=== PATIENT | female | born 1980 | race Caucasian/White ===

== ENCOUNTER 2018-04-28 05:29 | Observation (INO) | payer OTHER ==
[2018-04-27 09:30] LABS: BASOPHILS % 0.3 % (0.0-1.0); EOSINOPHILS # (AUTO) 0.1 (0.0-0.4); EOSINOPHILS % 1.5 % (0.0-6.0); HEMATOCRIT 35.1 % (34.2-44.1); HEMOGLOBIN 11.8 g/dL (12.0-16.0); LYMPHOCYTES # (AUTO) 2.1 (1.0-3.2); LYMPHOCYTES % 30.8 % (18.0-39.1); MEAN CORPUSCULAR HEMOGLOBIN 32.1 pg (28-32); MEAN CORPUSCULAR HGB CONC 33.6 g/dL (31-35); MEAN CORPUSCULAR VOLUME 95.4 fL (81-99); MONOCYTES # (AUTO) 0.6 (0.2-0.8); MONOCYTES % 9.3 % (4.4-11.3); NEUTROPHILS # (AUTO) 3.9 (2.1-6.9); NEUTROPHILS % 57.8 % (38.7-80.0); PLATELET COUNT 257 x10e3/uL (140-360); RED BLOOD COUNT 3.68 x10e6/uL (3.6-5.1); RED CELL DISTRIBUTION WIDTH 13.2 % (11.7-14.4)
[2018-04-27 11:02] LABS: HIV 1&2 AB SCREEN NON-REACTIVE (NONREACTIVE)
[~2018-04-28] VITALS: Ht 154.9 cm; Wt 56.2 kg
[~2018-04-28 05:29] MED LIST: ARICEPT5 MG PO; ASPIRIN81 MG; CITALOPRAM HBR20 MG PO; DOXYCYCLINE HY100 MG PO; FLUOXETINE HCL20 M1; FLUOXETINE HCL20 MG PO; HYZAAR 100-251 EACH; IRON; IRON325 M1; NITROGLYCERIN0.4 MG SL; NORCO 10-325 T1 EACH; PRAVASTATIN SOD10 MG; ROBAXIN500 MG; TRAZODONE HCL50 MG PO; ZETIA10 MG PO
[2018-04-28] MEDS ORDERED: CEFOXITIN SOD 1 GM VIAL ONE (06:14)
[2018-04-28 06:48] LABS: BILIRUBIN,URINE NEGATIVE (NEGATIVE); CLARITY,URINE CLOUDY (CLEAR); COLOR,URINE YELLOW (YELLOW); KETONES,URINE NEGATIVE (NEGATIVE); LEUKOCYTE ESTERASE ,URINE TRACE (NEGATIVE); NITRITE,URINE NEGATIVE (NEGATIVE); PROTEIN,URINE DIPSTICK TRACE (NEGATIVE); URINE UROBILINOGEN 0.2 mg/dL (0.2 - 1)
[2018-04-28] MEDS ORDERED: BUPIVACAINE LIPOSOME/PF 266 MG/20 ML IJ ONE (10:11)
[2018-04-28] MEDS ORDERED: FENTANYL CITRATE/PF 100MCG/2 ML INJ ONE ×2 (10:59→14:43)
[2018-04-28] MEDS ORDERED: DEXTROSE 5%/LACTATED RINGERS 1,000 ML IV ONE (11:11)
[2018-04-28] MEDS ORDERED: SIMETHICONE 80 MG CHEW PO PRN (11:15)
[2018-04-28] MEDS ORDERED: ONDANSETRON HCL INJ 2 MG/ML VIAL IV PRN (11:15)
[2018-04-28] MEDS ORDERED: HYDROMORPHONE 0.2MG/ML-SOD CHL 30ML PCA SYRINGE IV PRN (11:15)
[2018-04-28] MEDS ORDERED: DIPHENHYDRAMINE HCL 25 MG CAP PO PRN (11:15)
[2018-04-28] MEDS ORDERED: KETOROLAC TROMETHAMINE 30 MG/ML VIAL IM PRN (11:15)
[2018-04-28] MEDS ORDERED: NALOXONE HCL INJ 0.4 MG/ML AMP IV PRN (11:15)
--- NOTE | 2018-04-28 12:18 | Diagnostic Imaging Report ---
PROCEDURE: Frontal and lateral views of the chest. COMPARISON: None. INDICATIONS: pre op ovarian surgery FINDINGS: Lines/tubes: None. Lungs: The lungs are well inflated and clear. There is no evidence of pneumonia or pulmonary edema. Pleura: There is no pleural effusion or pneumothorax. Heart and mediastinum: The heart and the mediastinum are normal. Bones: No acute bony abnormality. IMPRESSION: No acute cardiopulmonary disease. Dictated by: SUDHIR CHIN M.D. on 04/27/2018 at 9:30 Electronically approved by: SUDHIR CHIN M.D. on 04/27/2018 at 9:30
--- NOTE | 2018-04-28 12:22 | Operative Report ---
DATE OF PROCEDURE: April 28, 2018 PREOPERATIVE DIAGNOSES 1. A 37-year-old white female, 0, with heavy, painful periods leading to anemia. 2. Severe lower abdominal and right-sided pelvic pain. 3. Large multiple fibroids of uterus. 4. Large right adnexal complex mass, possible endometrioma, around 8 cm size. POSTOPERATIVE DIAGNOSES 1. A 37-year-old white female, 0, with heavy, painful periods leading to anemia. 2. Severe lower abdominal and right-sided pelvic pain. 3. Large fibroids of uterus. 4. Right ovarian endometrioma. OPERATIVE PROCEDURES 1. Examination under anesthesia. 2. Exploratory laparotomy. 3. Multiple myomectomies. 4. Adhesiolysis. 5. Excision of right ovarian endometrioma and right salpingo-oophorectomy. [employer] J[employer] ASSEMBLER: Dr. Portillo ANESTHESIA: General. FINDINGS AT THE TIME OF SURGERY: On EUA, the cervix looked normal. The uterus was enlarged all the way up to the umbilicus, irregular and firm. Possible multiple large fibroids of uterus. On exploratory laparotomy, the uterus was enlarged, very irregular. Several fibroids coming from the uterus. One in the lower segment of the uterus is small. The 2nd one in the anterior abdominal wall is about 5 cm size. A 3rd one arising from the fundus is very wide and about 10 x 8 cm size, irregular. Number 4 from the posterior wall of the uterus is very wide, about 10 x 12 cm size, arising from the posterior wall of the uterus. The left ovary looked normal. The right ovary was enlarged and replaced completely by the cyst. There was no normal ovarian tissue found. It was stuck to the pelvic sidewall and to the bowel, and the tube was stretched over it and stuck to the bowel. Did multiple myomectomies. Removed 3 fibroid tumors, 1 from the anterior uterine wall, 1 from the fundus and 1 from the posterior wall of the uterus. The right ovary was stuck and replaced completely by the endometrioma. I tried to do excision of the cyst; but because of the adhesions, I could not. I had to remove the complete endometrioma and right salpingo-oophorectomy, after the adhesions from the pelvic sidewall and the bowel. Estimated blood loss was around 200 mL. Urine was clear in the Adair bag. Placed Interceed over the uterine incision to prevent adhesions. Hemostasis was satisfactory. No blood transfusions. PROCEDURE IN DETAIL: The patient was brought to the operating room, put in the supine position, and general anesthesia was given without any problems. Then she was examined under anesthesia. The findings were as dictated above. Then she was prepped and draped in a routine fashion, and we proceeded with the surgery. The Adair catheter in the bladder was draining clear urine. We made a subumbilical vertical incision of the skin, taken down to the fascia. The fascia was opened in a vertical fashion. The rectus muscles were longitudinally. We identified the parietal peritoneum and entered the abdominal cavity without any problems. Then we explored the pelvis. There were several large fibroid tumors arising from the uterus, like I described in my findings. One was small and in the stomach area. One was arising from the anterior wall of the uterus. Two big ones were arising, one from the fundus and one from the posterior wall of the uterus, and distorting the anatomy completely. Both the fundal and the posterior wall ones were away from the tubal opening entries. The left ovary was normal. The right ovary cystic mass looked benign but stuck to the pelvic sidewall and to the bowel in the back. Could not deliver outside. The tube was stretched over it, and the fimbrial end was stuck in the back to the bowel and to the ovarian mass. Therefore, we first the started with the myomectomy. First, we injected the Pitressin 1:13 dilution into the fibroid. Then we made an incision anteriorly over the fibroid tumor and dissected and shelled out the tumor, and the pedicle was closed with 2-0 Vicryl stitches. Then the fundal fibroid was away from the tubal openings. After making sure it was not anywhere close, we injected the diluted Pitressin into the top and anterior parts of the fibroid tumor transversely and made an incision transversely and shelled out the tumor. We excised the excess tissue. We then placed figure-of-8 stitches for hemostasis in the base to approximate the frontal and back liu of the uterus and then closed in the incision with continuous stitches using #1 Vicryl. The hemostasis was satisfactory after putting the pressure over the front incisions. The uterus was delivered outside. The posterior fibroid was injected with Pitressin into the front area. I made a transverse incision over the fibroid tumor and dissected and shelled out the tumor while holding with a clamp and removed the tumor. It was about 10 cm size. The uterine serosa over the tumor was excised. I then tied figure-of-8 stitches in the base to approximate the frontal and back liu. After approximating, the serosa was closed with continuous stitches using #1 Vicryl. Suture was tied snug and cut short. The hemostasis was satisfactory. We then placed an O'Aprezy-B-Bdmunwhp retractor in the incision for further exposure. Covered the uterus with a wet lap and packed all the bowels up with wet laps. We tried to deliver the right ovarian mass, but it was stuck in the back and could not deliver. Tried to do a cystectomy. Started dissecting, but it was an endometrioma, and it was stuck to the pelvic sidewall and to the bowel. Therefore, it was difficult and could not shell it out. The tube was stretched over it. The fimbrial end was all damaged and stuck to the ovarian mass and to the bowel. We gently the adhesions from the pelvic sidewall and to the bowel from the mass. We tried to save the ovary but could not because it was completely replaced by the endometrioma and could not even find the normal tissue. Therefore, I isolated the infundibulopelvic ligament, clamped with Gerry clamps, cut and suture ligated using 1-0 Vicryl close to the mass. The ureter was far away. Then the base of the endometrioma at the broad ligament was clamped with 3 Gerry clamps and cut towards the mass. The stumps were suture ligated using 2-0 Vicryl stitches. Finally, the adhesions from the bowel and clamped the rest of the broad ligament part with Gerry clamp, cut towards the endometrioma, and removed the endometrioma along with the ovary and the tube and sent for pathology. The stump was suture ligated using 2-0 Vicryl with continuous stitches, with the hemostasis satisfactory, the ureter far away, the urine clear, and the bowel looked fine. We then irrigated the pelvis. Hemostasis was satisfactory. Covered the uterine incisions with Interceed to prevent adhesions. Removed the O'Gtozgh-Y-Nklszgji retractor and closed the abdominal wall in layers. Parietal peritoneum was closed with 2-0 Vicryl continuous stitches. We then injected the Exparel local anesthesia for pain relief to the abdominal wall fascia and the muscle. Then the fascia was approximated with #1 Vicryl using 2 sutures starting at the corners and ending in the midline. The subcutaneous tissue was approximated with 3-0 Vicryl with continuous stitches. The skin was approximated with 4-0 Vicryl subcuticular stitches. The patient tolerated the procedure well. There were no complications, but it was a difficult case. Estimated blood loss was around 200 mL. Urine was clear. The patient was moved to the recovery room in stable condition. Job#: [id number]
[2018-04-28 12:23] VITALS: BP 92/50
[2018-04-28 12:46] VITALS: BP 92/50
[2018-04-28 12:48] VITALS: BP 92/50
[2018-04-28] MEDS ORDERED: MIDAZOLAM HCL 2 MG/2 ML VIAL ONE (14:43)
[2018-04-28 16:03] VITALS: BP 98/58
[2018-04-28] MEDS: CEFOXITIN SOD 1 GM VIAL IV SCH (17:10)
[2018-04-28] MEDS ORDERED: CEFOXITIN SOD 1 GM in WATER STERILE 10ML VIAL 10 ML IV SCH (18:00)
[2018-04-28] MEDS ORDERED: DESFLURANE 240 ML BTL INH ONE (18:01)
[2018-04-28] MEDS ORDERED: PROPOFOL IV EMULSION 10 MG/ML 20 ML VIAL ONE (18:01)
[2018-04-28] MEDS ORDERED: DEXAMETHASONE SOD PHOS INJ 4 MG/ML VIAL ONE (18:01)
[2018-04-28] MEDS ORDERED: ACETAMINOPHEN 1000 MG/100 ML IV ONE (18:01)
[2018-04-28] MEDS ORDERED: LIDOCAINE HCL 2% LOCAL INJ 5 ML SDV VIAL INJ ONE (18:01)
[2018-04-28] MEDS ORDERED: ROCURONIUM BROMIDE 10 MG/ML 5ML VIAL ONE (18:01)
[2018-04-28] MEDS ORDERED: ONDANSETRON HCL INJ 2 MG/ML VIAL ONE (18:01)
[2018-04-28] MEDS: DEXTROSE 5%/LACTATED RINGERS 1,000 ML IV SCH ×2 (18:13→20:45)
[2018-04-28 21:00] VITALS: BP 96/54
[2018-04-29] VITALS (8 sets, daily range): BP systolic 83–108; BP diastolic 48–59
[2018-04-29] MEDS: CEFOXITIN SOD 1 GM VIAL IV SCH ×3 (01:00→12:15)
[2018-04-29] MEDS: DEXTROSE 5%/LACTATED RINGERS 1,000 ML IV SCH (01:46)
[2018-04-29 05:19] LABS: BASOPHILS % 0.2 % (0.0-1.0); EOSINOPHILS % 0.1 % (0.0-6.0); HEMOGLOBIN 9.2 g/dL (12.0-16.0); LYMPHOCYTES % 18.3 % (18.0-39.1); MEAN CORPUSCULAR HEMOGLOBIN 32.1 pg (28-32); MEAN CORPUSCULAR HGB CONC 34.1 g/dL (31-35); MEAN CORPUSCULAR VOLUME 94.1 fL (81-99); MONOCYTES # (AUTO) 1.1 (0.2-0.8); MONOCYTES % 10.1 % (4.4-11.3); NEUTROPHILS # (AUTO) 7.8 (2.1-6.9); NEUTROPHILS % 70.9 % (38.7-80.0); PLATELET COUNT 211 x10e3/uL (140-360); RED BLOOD COUNT 2.87 x10e6/uL (3.6-5.1); RED CELL DISTRIBUTION WIDTH 13.1 % (11.7-14.4)
[2018-04-29 05:34] LABS: ANION GAP 11.6 mmol/L (8-16); BLOOD UREA NITROGEN < 5 mg/dL (7-26); CALCIUM 8.3 mg/dL (8.4-10.2); CARBON DIOXIDE 26 mmol/L (22-29); CHLORIDE 106 mmol/L (98-107); CREATININE, SERUM 0.62 mg/dL (0.57-1.11); EST GLOMERULAR FILTRATION RATE > 60 ML/MIN (60-); GLUCOSE 105 mg/dL (74-118); POTASSIUM 3.6 mmol/L (3.5-5.1); SODIUM 140 mmol/L (136-145)
[2018-04-29 05:35] LABS: BUN/CREATININE RATIO 8 (6-25)
[2018-04-29] MEDS ORDERED: FLUOXETINE HCL 20 MG CAP PO SCH (09:00)
[2018-04-29] MEDS ORDERED: TRAZODONE HCL 50 MG TAB PO SCH ×2 (09:00→21:00)
[2018-04-29] MEDS ORDERED: HEMOCYTE PLUS1 EACH (16:21)
[2018-04-29] MEDS ORDERED: COLACE100 MG PO (16:21)
[2018-04-29] MEDS ORDERED: ULTRAM 50MG50 MG PO (16:22)
== END 2018-04-29 16:47 | disposition home or self-care (01) ==
LOC: OR 05:29 → EDBD 07:30 → PACU V 11:08 → IMCU 12:01
PROVIDERS: ADMIT Specialist; ATTEND Specialist
DX: D25.9 Leiomyoma of uterus, unspecified (principal); N80.1 Endometriosis of ovary; D64.9 Anemia, unspecified; F41.9 Anxiety disorder, unspecified; Z88.5 Allergy status to narcotic agent; Z01.812 Encounter for preprocedural laboratory examination; Z01.811 Encounter for preprocedural respiratory examination
CPT/HCPCS: 36415 ×2; 58140; 58720; 71046; 80048; 81003; 84702; 85025 ×2; 86850; 86900; 87390; 88305; 88307; 93005; C9290; G0378 ×2; G0433; G0435; J0694 ×2; J1100; J1885; J2001; J2250; J2405; J7120 ×2; 88304